=== PATIENT | male | born 1990 | race Two or more races ===

== ENCOUNTER 2023-01-05 10:09 | Inpatient (IN) | payer OTHER ==
[~2023-01-05] VITALS: Ht 177.8 cm; Wt 81.2 kg
--- NOTE | 2023-01-05 10:16 | NUR ---
PACIENTE ALERTA Y ORIENTDADO X 3 REFIERE DOLOR ABDOMINAL DEL LADO DERECHO Y IRRADIA AL HOMBLIGO DESDE ESTA MADRUGADA.
--- NOTE | 2023-01-05 12:08 | NUR ---
RN BRYANT ORIENTA A PTE SOBRE TRATAMIENTO E INESTRUCCIONES A SEGUIR, [place] REFIERE ENTENDER. LE COLECTA MUESTRAS, LA CANALIZA Y LE ADMINISTRA MEDICAMENTO SIMI ORDEN MEDICA.
== END 2023-01-06 20:23 | disposition home or self-care (01) | DRG 343 ==
LOC: ER 10:09 → SEC-K 15:35 → O/R 15:35 → SURH 15:35 → O/R 16:50 → SURH 20:12
PROVIDERS: Emergency Medicine; General Practice; Surgery; ADMIT Specialist; ATTEND Specialist
PROC: BW21YZZ Computerized Tomography (CT Scan) of Abdomen and Pelvis using Other Contrast (ICD-10-PCS; 2023-01-05)
PROC: 0DTJ4ZZ Resection of Appendix, Percutaneous Endoscopic Approach (ICD-10-PCS; principal; 2023-01-05 18:30)
DX: K35.890 Other acute appendicitis without perforation or gangrene (principal); Z20.822 Contact with and (suspected) exposure to COVID-19